=== PATIENT | male | born 1970 | race Caucasian/White ===

== ENCOUNTER 2021-09-21 11:14 | Emergency (ER) | payer BC ==
[2021-09-21] MEDS ORDERED: predniSONE 10 MG Tab PO ONE (12:31)
== END 2021-09-21 12:43 | disposition home or self-care (01) ==
LOC: MW.ED 11:14
DX: U07.1 COVID-19 (principal); J02.9 Acute pharyngitis, unspecified; E78.00 Pure hypercholesterolemia, unspecified; I10 Essential (primary) hypertension; Z79.82 Long term (current) use of aspirin; Z79.899 Other long term (current) drug therapy
CPT/HCPCS: 99283; A9270